=== PATIENT | male | born 1960 | race Caucasian/White ===

== ENCOUNTER 2017-02-11 08:08 | Emergency (ER) | payer OTHER ==
[~2017-02-11] VITALS: Ht 190.5 cm; Wt 102.1 kg
--- NOTE | 2017-02-11 08:34 | ED GI/GU/ABDOMINAL COMPLAINT ---
History of Present Illness General Chief Complaint: Abdominal Pain/Flank Pain Stated Complaint: R SIDED ABD PAIN Source: patient Exam Limitations: no limitations Vital Signs & Intake/Output Vital Signs & Intake/Output Vital Signs Date Time Temp Pulse Resp B/P B/P Pulse O2 O2 Flow FiO2 Mean Ox Delivery Rate 02/11 1001 96.2 60 18 132/85 96 02/11 0901 Room Air Room Air 02/11 0814 96.9 62 18 134/90 96 Room Air Allergies Coded Allergies: No Known Allergies (02/11/17) Triage Note: PT STATES HE HAS BEEN GETTING SHARP PAIN RIGHT LOWER QUADRANT THAT JUST STARTED THIS AM. PT DENIES HAVING PROBLEMS WITH HIS BOWELS. DENIES URINE RETENTION. Triage Nurses Notes Reviewed? yes Duration: better Timing: single episode today Quality/Severity: dullness Severity Numbers: 2 Location: periumbilical Radiation: no radiation Activities at Onset: none HPI: Patient is a 57-year-old male who presents emergency room stating that he woke up his normal state health today approximately 6:30 AM he ate his normal breakfast with fruit were 30 minutes later he had acute onset of right quadrant abdominal pain Patient states the pain was acute in nature 04/21 however without medications his symptoms have improved Patient currently complains of 2 out of 10 right quadrant abdominal dull achy pain. Last bowel movement was today no blood no melena noted Denies any fevers chills chest pain shortness of breath cough dysuria hematuria nausea or vomiting. Denies any significant NSAID use however does drink alcohol at night 2-3 DRINKS OF VODKA (JONN CALABRESE) Past History Travel History Traveled to [place] past 21 day No Medical History Any Pertinent Medical History? see below for history Cardiovascular: hyperlipidemia Psychiatric: anxiety Surgical History Surgical History: non-contributory Psychosocial History What is your primary language Yoruba Tobacco Use: Never used ETOH Use: occasional use Illicit Drug Use: denies illicit drug use Family History Hx Contributory? No (JONN CALABRESE) Review of Systems Review of Systems Constitutional: Reports: no symptoms. EENTM: Reports: no symptoms. Respiratory: Reports: no symptoms. Cardiovascular: Reports: no symptoms. GI: Reports: see HPI, abdominal pain. Genitourinary: Reports: no symptoms. Musculoskeletal: Reports: no symptoms. Skin: Reports: no symptoms. Neurological/Psychological: Reports: no symptoms. Hematologic/Endocrine: Reports: no symptoms. Immunologic/Allergic: Reports: no symptoms. All Other Systems: Reviewed and Negative (JONN CALABRESE) Physical Exam Physical Exam General Appearance: no apparent distress, alert, comfortable Gastrointestinal: normal bowel sounds, mild right periumbilical tenderness no RUQ PAIN NO REBOUND TENDERNESS NO PERITONEAL PAIN Comments: Well-developed well-nourished person in no acute distress HEENT: Normal EENT exam, Neck: Supple, no lymphadenopathy, normal range of motion without pain or tenderness Back: Nontender, no CVA tenderness. Cardiovascular: Regular rate and rhythms no murmurs rubs or gallops, normal JVP Respiratory: Chest nontender. No respiratory distress.breath sounds clear to auscultation bilaterally Extremity: No edema, no calf tenderness to palpation, normal and equal pulses. Neuro: Alert oriented x3, motor sensory normal, Skin: No appreciable rash on exposed skin, skin is warm and dry. Psych: Mood and affect is normal, memory and judgment is normal. Core Measures ACS in differential dx? No Severe Sepsis Present: No Septic Shock Present: No (JONN CALABRESE) Progress Differential Diagnosis: AAA, AMI, appendicitis, biliary colic, bowel obstruction , colon cancer, cholecystitis, diverticulitis, epididymitis, esophageal varices, gastritis, hepatitis, hernia, hemorrhoids, ischemic bowel, inflamm bowel dis, Xochitl-Naima tear, orchitis, pancreatitis, prostatitis, peptic ulcer, PUD/GERD, perforated viscous, pyelonephritis, SBO, testicular torsion, ureterolithiasis, urinary retention, urethritis, UTI/pyelo Plan of Care: Orders Procedure Date/time Status URINALYSIS 02/11 0840 Complete LIPASE 02/11 0840 Complete COMPREHENSIVE METABOLIC PANEL 02/11 0840 Complete CBC WITHOUT DIFFERENTIAL 02/11 0840 Complete AMYLASE 02/11 0840 Complete Laboratory Tests 02/11/17 0856: Anion Gap 13, Estimated GFR > 60, BUN/Creatinine Ratio 21.3, Glucose 80, Calcium 9.5, Total Bilirubin 0.7, AST 35, ALT 48, Alkaline Phosphatase 52, Total Protein 7.3, Albumin 4.2, Globulin 3.1, Albumin/Globulin Ratio 1.4, Amylase 82, Lipase 78, CBC w Diff NO MAN DIFF REQ, RBC 4.68 L, MCV 89.3, MCH 30.1, RDW 13.1, MPV 8.4, Gran % 62.9, Lymphocytes % 26.2, Monocytes % 8.7, Eosinophils % 1.8, Basophils % 0.4, Absolute Granulocytes 3.3, Absolute Lymphocytes 1.4, Absolute Monocytes 0.5, Absolute Eosinophils 0.1, Absolute Basophils 0, PUBS MCHC 33.8, Urine Color YEL, Urine Clarity CLEAR, Urine pH 6.0, Ur Specific [place] 1.020, Urine Protein NEG, Urine Ketones NEG, Urine Nitrite NEG, Urine Bilirubin NEG, Urine Urobilinogen 0.2, Ur Leukocyte Esterase NEG, Ur Microscopic EXAM NOT REQUIRED, Urine Hemoglobin NEG, Urine Glucose NEG Patient declines pain medications when offered 02/11/17 0937 reevaluation the patient patient again no apparent distress blood work is unremarkable CT scan currently pending CT scan was unremarkable patient again resting comfortably on bed. I shortly advised patient to follow up with GI if symptoms continue and to return to emergency room if symptoms worsen and he will comply (BOUCHRA HUTCHINSON,JONN) Diagnostic Imaging: Viewed by Me: CT Scan. Radiology Impression: no acute abnormality Initial ED EKG: none Comments: PATIENT: JAGDEEP ASHTON PRESENT AGE: 57 PATIENT ACCOUNT NO: [id number] : 62 LOCATION: [facility] ORDERING PHYSICIAN: JONN HUTCHINSON SERVICE DATE: 02/11/17 EXAM TYPE: CAT - CT ABD & PELVIS W/O IV CONTRAS EXAMINATION: CT ABDOMEN AND PELVIS WITHOUT CONTRAST CLINICAL INFORMATION: Right periumbilical pain COMPARISON: None TECHNIQUE: Multidetector volumetric imaging was performed from the superior aspect of the liver through the pubic symphysis. Sagittal and coronal reformatted images were obtained on the technologist's workstation. DLP: 875 mGy-cm FINDINGS: LUNG BASES: There are dependent changes in the lung bases bilaterally. The imaged heart and pericardium appear unremarkable. LIVER, GALLBLADDER, AND BILIARY TREE: The liver is diffusely low in attenuation without focal defined lesion. The hepatic contour appears smooth. No ductal dilatation is visualized. The gallbladder is unremarkable with no evidence of radiopaque gallstones, gallbladder wall thickening, or obvious pericholecystic inflammatory changes. PANCREAS: Unremarkable. SPLEEN: Unremarkable. ADRENAL GLANDS: Unremarkable. KIDNEYS AND URETERS: The kidneys are normal in size, shape, and attenuation. No hydronephrosis, hydroureter, or calculi seen. No perinephric stranding. BLADDER: Unremarkable. GASTROINTESTINAL TRACT: The small and large bowel are unremarkable. The appendix is unremarkable. ABDOMINAL WALL: No significant hernia is appreciated. LYMPH NODES: No adenopathy. VASCULAR: The aorta is normal in caliber. PELVIC VISCERA: There are a few scattered calcifications within the prostate. OSSEOUS STRUCTURES: No acute osseous abnormality. There are 5 nonrib-bearing lumbar type vertebral bodies. There is incidental incomplete fusion of the posterior arch of S1. Lumbar spondylosis is most notable at L4-L5 and L5-S1. No scoliosis. No spondylolysis. IMPRESSION: No acute intra-abdominal or intrapelvic pathology. Hepatic steatosis. DICTATED BY: JOHNNY MUNOZ MD (JONN CALABRESE) Departure Departure Disposition: HOME OR SELF CARE Condition: Stable Clinical Impression Primary Impression: Abdominal pain Referrals: JJ CHEW,REMBERTO HANCOCK MD,ODALIS Cervantes (PCP/Family) Additional Instructions: As discussed begin a 24-hour clear liquid and bland diet to rest bowels. If symptoms worsen return to emergency room. If no better in 2 days follow-up with plant tender for further evaluation treatment Departure Forms: Customer Survey General Discharge Information (JONN CALABRESE) PA/COMPUTER SYSTEMS TECHNICIAN Co-Sign Statement Statement: ED Attending supervision documentation- [] I saw and evaluated the patient. I have also reviewed all the pertinent lab results and diagnostic results. I agree with the findings and the plan of care as documented in the PA's/COMPUTER SYSTEMS TECHNICIAN's documentation. x I have reviewed the ED Record and agree with the PA's/COMPUTER SYSTEMS TECHNICIAN's documentation. [] Additions or exceptions (if any) to the PAs/COMPUTER SYSTEMS TECHNICIAN's note and plan are summarized below: [] (HARSH CHEW,INNA)
[2017-02-11 09:11] LABS: ABSOLUTE BASOPHIL COUNT 0 /CUMM (0.0-0.2); ABSOLUTE EOSINOPHIL COUNT 0.1 /CUMM (0.0-0.7); ABSOLUTE GRANULOCYTE CT 3.3 /CUMM (1.4-6.5); ABSOLUTE LYMPH COUNT 1.4 /CUMM (1.2-3.4); ABSOLUTE MONOCYTE COUNT 0.5 /CUMM (0.10-0.60); BASOPHIL % 0.4 % (0.0-2.0); EOSINOPHIL % 1.8 % (0-5); GRANULOCYTE % 62.9 % (42.2-75.2); HEMATOCRIT 41.8 % (42-52); MEAN CORPUSCULAR HGB 30.1 PG (27.0-31.0); MEAN CORPUSCULAR HGB CONC 33.8 G/DL (33.0-37.0); MEAN CORPUSCULAR VOLUME 89.3 FL (80.0-94.0); MEAN PLATELET VOLUME 8.4 FL (7.4-10.4); PLATELET COUNT 236 /CUMM (130-400); RBC DISTRIBUTION WIDTH 13.1 % (11.5-14.5); RED BLOOD CELL CT 4.68 /CUMM (4.70-6.10); WHITE BLOOD CELL COUNT 5.3 /CUMM (4.8-10.8)
--- NOTE | 2017-02-11 09:48 | CT SCAN REPORT ---
EXAMINATION: CT ABDOMEN AND PELVIS WITHOUT CONTRAST CLINICAL INFORMATION: Right periumbilical pain COMPARISON: None TECHNIQUE: Multidetector volumetric imaging was performed from the superior aspect of the liver through the pubic symphysis. Sagittal and coronal reformatted images were obtained on the technologist's workstation. DLP: 875 mGy-cm FINDINGS: LUNG BASES: There are dependent changes in the lung bases bilaterally. The imaged heart and pericardium appear unremarkable. LIVER, GALLBLADDER, AND BILIARY TREE: The liver is diffusely low in attenuation without focal defined lesion. The hepatic contour appears smooth. No ductal dilatation is visualized. The gallbladder is unremarkable with no evidence of radiopaque gallstones, gallbladder wall thickening, or obvious pericholecystic inflammatory changes. PANCREAS: Unremarkable. SPLEEN: Unremarkable. ADRENAL GLANDS: Unremarkable. KIDNEYS AND URETERS: The kidneys are normal in size, shape, and attenuation. No hydronephrosis, hydroureter, or calculi seen. No perinephric stranding. BLADDER: Unremarkable. GASTROINTESTINAL TRACT: The small and large bowel are unremarkable. The appendix is unremarkable. ABDOMINAL WALL: No significant hernia is appreciated. LYMPH NODES: No adenopathy. VASCULAR: The aorta is normal in caliber. PELVIC VISCERA: There are a few scattered calcifications within the prostate. OSSEOUS STRUCTURES: No acute osseous abnormality. There are 5 nonrib-bearing lumbar type vertebral bodies. There is incidental incomplete fusion of the posterior arch of S1. Lumbar spondylosis is most notable at L4-L5 and L5-S1. No scoliosis. No spondylolysis. IMPRESSION: No acute intra-abdominal or intrapelvic pathology. Hepatic steatosis.
[2017-02-11 10:01] VITALS: BP 132/85
[2017-02-11] MEDS ORDERED: PERCOCET 5-3251 EACH PO (12:40)
[2017-02-11] MEDS ORDERED: BENTYL10 M1 PO (12:40)
== END 2017-02-11 12:49 ==
LOC: ERH 08:08
PROVIDERS: Physician Assistant
DX: R10.31 Right lower quadrant pain (principal)
CPT/HCPCS: 74176; 81003

== ENCOUNTER 2017-02-11 11:53 | Emergency (ER) | payer OTHER ==
[~2017-02-11] VITALS: Ht 190.5 cm; Wt 102.1 kg
[2017-02-11 11:58] VITALS: BP 134/85
--- NOTE | 2017-02-11 12:02 | ED GI/GU/ABDOMINAL COMPLAINT ---
History of Present Illness General Chief Complaint: General Adult Stated Complaint: WAS HERE IN THE AM AND PAIN ARE STILL THERE Source: patient Exam Limitations: no limitations Vital Signs & Intake/Output Vital Signs & Intake/Output Vital Signs Date Time Temp Pulse Resp B/P B/P Pulse O2 O2 Flow FiO2 Mean Ox Delivery Rate 02/11 1158 96.8 55 16 134/85 95 Room Air Allergies Coded Allergies: No Known Allergies (02/11/17) Reconcile Medications Dicyclomine Hydrochloride (Bentyl) 10 MG CAPSULE 1 CAP PO TID PRN ABDOMINAL PAIN Oxycodone HCl/Acetaminophen (Percocet 5-325 MG Tablet) 5 MG-325 MG TABLET 1 TAB PO Q4-6 PRN PAIN Triage Note: PT HAVING RIGHT SIDED ABD PAIN SEVERE AFTER HE LEFT ED THIS AM. PT TOOK 3 MOTRIN HOWEVER DID NOTHING FOR THE PAIN. PT SPOKE WITH MD IN ED AND WAS TOLD TO RETURN Triage Nurses Notes Reviewed? yes Onset: Abrupt Duration: constant Timing: single episode today Quality/Severity: sharpness, severe Severity Numbers: 5 Location: right lower quadrant, right upper quadrant Radiation: no radiation Activities at Onset: none HPI: Patient is a 57-year-old male who presents to emergency room in which I evaluated patient today for concerns of right PERIUmbilical pain where his labs and CT scan was unremarkable patient was safely discharged however he presents again with worsening right quadrant pain. I advised patient over the phone prior to arrival to begin [id number] ibuprofen which she states that he had no improvement of his pain. Patient currently complains of 510 right lower quadrant pain. Denies any nausea vomiting and is otherwise without complaints. Denies any fever chills. (JONN CALABRESE) Past History Travel History Traveled to [place] past 21 day No Medical History Any Pertinent Medical History? see below for history Cardiovascular: hyperlipidemia Psychiatric: anxiety Surgical History Surgical History: non-contributory Psychosocial History What is your primary language Georgian Tobacco Use: Never used ETOH Use: occasional use Illicit Drug Use: denies illicit drug use Family History Hx Contributory? No (JONN CALABRESE) Review of Systems Review of Systems Constitutional: Reports: no symptoms. EENTM: Reports: no symptoms. Respiratory: Reports: no symptoms. Cardiovascular: Reports: no symptoms. GI: Reports: see HPI, abdominal pain. Genitourinary: Reports: no symptoms. Musculoskeletal: Reports: no symptoms. Skin: Reports: no symptoms. Neurological/Psychological: Reports: no symptoms. Hematologic/Endocrine: Reports: no symptoms. Immunologic/Allergic: Reports: no symptoms. All Other Systems: Reviewed and Negative (JONN CALABRESE) Physical Exam Physical Exam General Appearance: no apparent distress Gastrointestinal: normal bowel sounds, soft, MILD RLQ PAIN NO PERITONEAL OR REBOUND PAIN Comments: Well-developed well-nourished person in no acute distress HEENT: Normal EENT exam, Neck: Supple, no lymphadenopathy, normal range of motion without pain or tenderness Back: Nontender, no CVA tenderness. Cardiovascular: Regular rate and rhythms no murmurs rubs or gallops, normal JVP Respiratory: Chest nontender. No respiratory distress.breath sounds clear to auscultation bilaterally Extremity: No edema, no calf tenderness to palpation, normal and equal pulses. Neuro: Alert oriented x3, motor sensory normal, Skin: No appreciable rash on exposed skin, skin is warm and dry. Psych: Mood and affect is normal, memory and judgment is normal. Core Measures ACS in differential dx? No Severe Sepsis Present: No Septic Shock Present: No (JONN CALABRESE) Progress Differential Diagnosis: AAA, AMI, appendicitis, biliary colic, bowel obstruction , colon cancer, cholecystitis, diverticulitis, epididymitis, esophageal varices, gastritis, hepatitis, hernia, hemorrhoids, ischemic bowel, inflamm bowel dis, orchitis, pancreatitis, prostatitis, peptic ulcer, PUD/GERD, perforated viscous, pyelonephritis, SBO, testicular torsion, ureterolithiasis, urinary retention, urethritis, UTI/pyelo Plan of Care: Patient currently is in no apparent distress nontoxic-appearing afebrile and was able tolerate by mouth. Patient does have mild right lower quadrant pain on exam however patient was discharged just a few hours ago and CT scan dictated that the appendix appeared to be normal. PATIENT AND I discussed about worsening symptoms or appendicitis symptoms to return to emergency room and him and I agreed that obtaining a another CT scan would expose patient to significant radiation. Patient upon discharge looks well no apparent distress. I discussed this disposition plan with DR. HOUSE who agrees Initial ED EKG: none (JONN CALABRESE) Departure Departure Disposition: HOME OR SELF CARE Condition: Stable Clinical Impression Primary Impression: Abdominal pain Referrals: KARISSA CHEW,ODALIS Cervantes (PCP/Family) Additional Instructions: As discussed if symptoms worsen or if you start developing fevers nausea vomiting or any new concerning symptom return to emergency room immediately. Begin the prescription of Percocet for pain and Bentyl for your symptoms. If no better by tomorrow follow-up with head up operator helper Prescriptions waiting at [facility] pharmacy Departure Forms: Customer Survey General Discharge Information Prescriptions: Current Visit Scripts Oxycodone HCl/Acetaminophen (Percocet 5-325 MG Tablet) 1 TAB PO Q4-6 PRN PAIN #10 TAB Dicyclomine Hydrochloride (Bentyl) 1 CAP PO TID PRN ABDOMINAL PAIN #9 CAP (JONN CALABRESE) PA/ROBOTICS SYSTEMS ENGINEER Co-Sign Statement Statement: ED Attending supervision documentation- [] I saw and evaluated the patient. I have also reviewed all the pertinent lab results and diagnostic results. I agree with the findings and the plan of care as documented in the PA's/ROBOTICS SYSTEMS ENGINEER's documentation. x I have reviewed the ED Record and agree with the PA's/ROBOTICS SYSTEMS ENGINEER's documentation. [] Additions or exceptions (if any) to the PAs/ROBOTICS SYSTEMS ENGINEER's note and plan are summarized below: [] (HARSH CHEW,INNA)
[2017-02-11] MEDS ORDERED: PERCOCET 5-3251 EACH PO (12:40)
[2017-02-11] MEDS ORDERED: BENTYL10 M1 PO (12:40)
== END 2017-02-11 12:58 ==
LOC: ERH 11:53
DX: R10.31 Right lower quadrant pain (principal)